=== PATIENT | female | born 1945 | race Caucasian/White ===

== ENCOUNTER 2016-09-18 16:25 | Inpatient (IN) | payer MEDICARE, BC ==
[~2016-09-18 16:25] MED LIST: ADULT ASPIRIN81 MG; ALBUTEROL SULF8.5 G1 IH; ALBUTEROL17 GM; ALBUTEROL17 GM INH; ALBUTEROL2.5 MG/3 M AERO NEB; ALLEGRA-D 24 H1 EACH PO; ALLEGRA-D1 TAB PO; ALLEGRA-D1 TAB.SR; ALOE VERA; ALOE VERA JUICE PO; ALTACE PO; ALTACE2.5 MG; ALTACE5 M4 PO; AMOXICILLIN500 M PO; ASPIRIN EC325 M1 PO; ASPIRIN81 MG PO; ASTELIN137 MCG; ASTELIN137 MCG NS; ATIVAN0.5 MG; ATIVAN1 MG; ATIVAN1 MG PO; ATIVAN2 M1 PO; ATIVAN2 MG PO; AZELASTINE137 MCG/0. NS; AZELASTINE137 MCG/01; BACTRIM DS TAB1 EAC2 PO; BACTRIM DS TABL1 TAB PO; CALCIUM + D 6001 TAB; CALCIUM + D T1 UDTAB PO; CALCIUM 600 +1 EA17 PO; CALCIUM 600 MG1 EACH PO; CALCIUM 600 W/V1 TAB; CATAPRES0.1 M1 PO; CIPRO500 M1 PO; CIPRO500 M2 PO; CLINDAMYCIN PO; COCONUT OIL1000 M1 PO; COENZYME Q-1050 MG; COMPAZINE10 MG PO; COMPAZINE5 MG PO; COREG6.25 M1 PO; CRANBERRY CONC300 MG; CRANBERRY CONC300 MG PO; CRANBERRY TABL1 EAC1 PO; CRANBERRY200 MG PO; CULTURELLE1 CA1 PO; CYTOMEL50 MCG; DELTASONE10 MG PO; DOLACET 5/500 C1 CAP; DUONEB 2.5-0.5MG3 M1 AERO NEB; ECHINACEA500 MG; EFFEXOR XR150 M1 PO; EFFEXOR XR150 MG; EFFEXOR XR150 MG PO; ENABLEX7.5 MG; FIORINAL W/CODE1 CAP; FIORINAL/CODEIN1 CAP; FISH OIL 1,0001 CAP; FISH OIL 1,0001 CAP PO; FISH OIL 1,2001 CAP PO; FISH OIL 1,2001 EAC5 PO; FISH OIL 300 MG; FISH OIL SOFTGE1 CAP; FLAXSEED PO; FLEXERIL10 MG PO; FLOVENT; FLOVENT DISKU100 MC1 IH; FLOVENT HFA12 G; FLOVENT HFA12 G IH; FLOVENT HFA12 GM; FLOVENT HFA12 GM IH; FLOVENT13; GARLIC; GARLIC OIL1000 M1 PO; GARLIC PO; GARLIC1 CAP PO; GINSENG; GINSENG520 MG; GINSENG520 MG PO; GLUCOPHAGE XR500 MG; GLUCOPHAGE500 M3 PO; GLUCOPHAGE500 MG PO; GLUCOSAMINE; GLUCOSAMINE &1 EAC1 PO; GLUCOSAMINE-CH1 EA13 PO; GLUCOSAMINE-CHO1 CA1; GLUCOSAMINE500 MG PO; GREEN TEA250 MG; IMODIUM2 MG PO; IPRAT-ALBUT 0.5-3 ML INH; KLONOPIN2 M1 PO; KLONOPIN2 MG; LEVAQUIN250 MG PO; LEVAQUIN750 M1 PO; LEVOFLOXACIN750 MG PO; LIPITOR20 MG; LIPITOR20 MG PO; LIPITOR40 M1 PO; LIPITOR40 MG; LORAZEPAM1 MG; MACROBID 100 M100 M1 PO; MACRODANTIN100 MG; MACRODANTIN50 MG; MORPHINE SULFAT15 MG PO; MORPHINE SULFAT3 PO; MORPHINE SULFAT30 M2 PO; MS CONTIN15 MG PO; MUCINEX600 M1 PO; MULTIVITAMIN1 TAB; MULTIVITAMIN1 TAB PO; MULTIVITAMINS1 EAC7 PO; MYRBETRIQ50 M1 PO; NASACORT10 GM; NASALCROM40 MG/ML; NASONEX17 GM; NEXIUM40 MG; NEXIUM40 MG PO; NORCO 10/325 TA1 TAB PO; NORCO 5/325 TAB1 TAB PO; OIL OF OREGANO; PASSION FLOWER; PAU D ARCO; PEPCID40 MG; PEPCID40 MG PO; PEPTO-BISM262 MG/11 PO; PERCOCET 5/3251 TAB PO; PHENERGAN25 M1 PO; PHENERGAN25 MG; PREDNISONE10 M1 PO; PREDNISONE10 MG PO; PROAIR HFA8.5 GM IH; PROAIR HFA8.5 GM INH; PROBIOTIC1 EA10 PO; PROMETHAZINE HC25 M3 PO; PROTONIX20 M1 PO; PROVENTIL HFA6.7 G1 INH; PYCNOGENOL; PYRIDIUM200 MG PO; RELAFEN500 MG; REQUIP1 MG; RISPERDAL1 M2 PO; RISPERDAL1 MG; RISPERDAL1 MG PO; SALMON OIL 1,01 EACH PO; SALMON OIL-1,001 CAP; SINGULAIR; SINGULAIR10 M1 PO; SINGULAIR10 MG; SINGULAIR10 MG PO; SINGULAIR4 MG; STOOL SOFTENER1 EAC4 PO; SYMBICORT 160-1 PUFF INH; SYNTHROID; SYNTHROID0.2 MG/TAB PO; SYNTHROID125 MCG; SYNTHROID150 MCG PO; SYNTHROID200 MCG PO; SYNTHROID50 MCG; TALADINE150 MG PO; TART CHERRY CA1 EACH PO; TRAZODONE HCL100 M1 PO; TRAZODONE HCL300 MG; TRAZODONE100 MG; TRAZODONE100 MG PO; TRILEPTAL300 MG; TRILEPTAL600 M2 PO; TRILEPTAL600 MG; TRILEPTAL600 MG PO; TURMERIC500 MG PO; TYLENOL325 MG PO; VALERIAN400 MG; VENTOLIN HFA18 GM INH; VICODIN 5/500 T1 TAB PO; VITAMIN A10000 UNIT; VITAMIN B121000 MCG PO; VITAMIN B1250 MCG; VITAMIN C; VITAMIN C PO; VITAMIN C500 M3 PO; VITAMIN D 22000 UNIT; VITAMIN D1000 UNIT PO; VITAMIN D31000 UNI3 PO; VITAMIN E400 UNI1; VITAMIN E400 UNI1 PO; VITAMIN E400 UNI6 PO; VYTORIN 10/20 T1 TAB; ZANTAC150 M1 PO; ZANTAC150 MG PO; ZETA; ZETIA10 M1 PO; ZETIA10 MG; ZETIA10 MG PO; ZINC30 MG; ZOCOR40 MG; ZOFRAN ODT4 MG/UDTAB PO; [UNRECOGNIZED DRUG - OTHER]; [UNRECOGNIZED DRUG - OTHER]; [UNRECOGNIZED DRUG - OTHER]; [UNRECOGNIZED DRUG - OTHER]; [UNRECOGNIZED DRUG - OTHER]; [UNRECOGNIZED DRUG - OTHER]; [UNRECOGNIZED DRUG - OTHER]; [UNRECOGNIZED DRUG - OTHER]; [UNRECOGNIZED DRUG - OTHER]; [UNRECOGNIZED DRUG - OTHER]; [UNRECOGNIZED DRUG - OTHER]; [UNRECOGNIZED DRUG - OTHER] PO; [UNRECOGNIZED DRUG - OTHER] PO; [UNRECOGNIZED DRUG - OTHER] PO; [UNRECOGNIZED DRUG - OTHER] PO
[2016-09-18 17:33] LABS: BASO % 1.8 % (0-2); BASO ABSOLUTE COUNT 0.1 tho/cmm (0.0-0.2); EOS % 9.5 % (0-7); EOSINOPHIL ABSOLUTE COUNT 0.7 tho/cmm (0.0-0.7); HCT-HEMATOCRIT 44.7 % (34.0-49.0); HGB-HEMOGLOBIN 15.3 gm/dl (12.0-15.5); IMMATURE GRANULOCYTES ABSOLUTE 0.01 tho/cmm (0-0.03); IMMATURE GRANULOCYTES PERCENT 0.1 % (0-0.3); LYMPH % 20.9 % (20-45); LYMPH ABSOLUTE COUNT 1.5 tho/cmm (0.8-4.5); MCH (MEAN CORPUSCULAR HGB) 31.2 pg (28.0-32.0); MCHC MEAN CORPUSCULAR HGB CONC 34.2 % (32.0-36.0); MEAN PLATELET VOLUME 9.9 cmc (9.4-12.4); MONOCYTE ABSOLUTE COUNT 0.6 tho/cmm (0.0-1.2); NEUTROPHIL ABSOLUTE COUNT 4.2 tho/cmm (1.6-8.0); NEUTROPHIL-AUTOMATED 4.2 tho/cmm (1.6-8.0); NEUTROPHILS % 58.7 % (40-80); PLATELET COUNT 184 tho/cmm (150-450); RED BLOOD COUNT 4.91 mil/cmm (4.00-5.20); RED CELL DISTRIBUTION WIDTH 13.8 % (12.4-16.4); WHITE BLOOD COUNT 7.1 tho/cmm (4.0-10.0)
[2016-09-18 17:38] LABS: INR 0.9 INR (0.9-1.1); PROTHROMBIN TIME 10.9 SECONDS (9.0-13.6)
[2016-09-18 18:07] LABS: PROCALCITONIN <0.05 ng/ml (0.05-0.09)
[2016-09-18 18:09] LABS: ANION GAP 14 mmol/L (0-20); BLOOD UREA NITROGEN 7 mg/dl (6-24); CALCIUM 8.7 mg/dl (8.5-10.5); CARBON DIOXIDE-VENOUS 30 mmol/L (22-32); CHLORIDE 99 mmol/l (96-110); GLUCOSE 131 mg/dL (70-110); POTASSIUM 3.9 mmol/L (3.7-5.1); SODIUM 139 mmol/L (135-145); eGFR VALUE FOR BLACK >90 mL/Min
[2016-09-19 04:39] LABS: BASO % 1.4 % (0-2); BASO ABSOLUTE COUNT 0.1 tho/cmm (0.0-0.2); EOS % 2.1 % (0-7); EOSINOPHIL ABSOLUTE COUNT 0.1 tho/cmm (0.0-0.7); HCT-HEMATOCRIT 46.3 % (34.0-49.0); HGB-HEMOGLOBIN 15.6 gm/dl (12.0-15.5); IMMATURE GRANULOCYTES ABSOLUTE 0.01 tho/cmm (0-0.03); IMMATURE GRANULOCYTES PERCENT 0.2 % (0-0.3); LYMPH ABSOLUTE COUNT 0.8 tho/cmm (0.8-4.5); MCH (MEAN CORPUSCULAR HGB) 30.9 pg (28.0-32.0); MCHC MEAN CORPUSCULAR HGB CONC 33.7 % (32.0-36.0); MCV (MEAN CELL VOLUME) 91.7 fl (82.0-96.0); MEAN PLATELET VOLUME 9.6 cmc (9.4-12.4); MONO % 2.1 % (0-12); MONOCYTE ABSOLUTE COUNT 0.1 tho/cmm (0.0-1.2); NEUTROPHILS % 78.2 % (40-80); PLATELET COUNT 175 tho/cmm (150-450); RED BLOOD COUNT 5.05 mil/cmm (4.00-5.20); RED CELL DISTRIBUTION WIDTH 13.7 % (12.4-16.4); WHITE BLOOD COUNT 5.1 tho/cmm (4.0-10.0)
[2016-09-19 05:46] LABS: ANION GAP 13 mmol/L (0-20); BLOOD UREA NITROGEN 5 mg/dl (6-24); CALCIUM 8.7 mg/dl (8.5-10.5); CARBON DIOXIDE-VENOUS 31 mmol/L (22-32); CHLORIDE 100 mmol/l (96-110); CREATININE 0.59 mg/dl (0.50-1.10); GLUCOSE 154 mg/dL (70-110); SODIUM 140 mmol/L (135-145); eGFR VALUE FOR BLACK >90 mL/Min
[2016-09-19 07:05] LABS: URINE APPEARANCE CLEAR; URINE BILIRUBIN NEGATIVE (NEG); URINE BLOOD NEGATIVE (NEG); URINE COLOR YELLOW; URINE GLUCOSE (UA) NEGATIVE (NEG); URINE KETONE MODERATE (NEG); URINE LEUKOCYTE ESTERASE NEGATIVE (NEG); URINE NITRITE NEGATIVE (NEG); URINE PROTEIN MODERATE (NEG)
[2016-09-19 07:16] LABS: URINE EPITHELIAL CELLS 0-3 /[HPF] (0-10); URINE WBC RARE /[HPF] (0-5)
[2016-09-19 09:30] LABS: URINE RBC O /[HPF] (0-5)
[2016-09-19 11:08] LABS: ABG CO2 ARTERIAL 30 mmol/L (21-27); ARTERIAL BLD GAS O2 SATURATION 97 % (95-98); ARTERIAL BLOOD GAS PCO2 45 mmHg (32-45); ARTERIAL PO2 88 mmHg (70-100); BICARBONATE 29 mmol/L (21-28); BLOOD GAS BASE EXCESS 4 mM/L (-/+3); PH 7.42 Units (7.35-7.45)
[2016-09-20 04:16] LABS: ABG CO2 ARTERIAL 32 mmol/L (21-27); ARTERIAL BLD GAS O2 SATURATION 95 % (95-98); ARTERIAL BLOOD GAS PCO2 48 mmHg (32-45); BICARBONATE 31 mmol/L (21-28); BLOOD GAS BASE EXCESS 5 mM/L (-/+3); PH 7.42 Units (7.35-7.45)
[2016-09-20 04:18] LABS: ARTERIAL PO2 74 mmHg (70-100)
[2016-09-20 04:45] LABS: BASO % 0.1 % (0-2); EOS % 0.1 % (0-7); HCT-HEMATOCRIT 46.3 % (34.0-49.0); HGB-HEMOGLOBIN 15.7 gm/dl (12.0-15.5); IMMATURE GRANULOCYTES ABSOLUTE 0.01 tho/cmm (0-0.03); IMMATURE GRANULOCYTES PERCENT 0.1 % (0-0.3); LYMPH % 19.1 % (20-45); LYMPH ABSOLUTE COUNT 1.3 tho/cmm (0.8-4.5); MCH (MEAN CORPUSCULAR HGB) 31.2 pg (28.0-32.0); MCHC MEAN CORPUSCULAR HGB CONC 33.9 % (32.0-36.0); MCV (MEAN CELL VOLUME) 91.9 fl (82.0-96.0); MEAN PLATELET VOLUME 9.5 cmc (9.4-12.4); MONO % 4.9 % (0-12); MONOCYTE ABSOLUTE COUNT 0.3 tho/cmm (0.0-1.2); NEUTROPHIL ABSOLUTE COUNT 5.3 tho/cmm (1.6-8.0); NEUTROPHIL-AUTOMATED 5.3 tho/cmm (1.6-8.0); NEUTROPHILS % 75.7 % (40-80); PLATELET COUNT 230 tho/cmm (150-450); RED BLOOD COUNT 5.04 mil/cmm (4.00-5.20); RED CELL DISTRIBUTION WIDTH 13.6 % (12.4-16.4)
[2016-09-20 05:09] LABS: ANION GAP 11 mmol/L (0-20); BLOOD UREA NITROGEN 10 mg/dl (6-24); CALCIUM 8.9 mg/dl (8.5-10.5); CARBON DIOXIDE-VENOUS 34 mmol/L (22-32); CHLORIDE 98 mmol/l (96-110); CREATININE 0.67 mg/dl (0.50-1.10); GLUCOSE 193 mg/dL (70-110); SODIUM 139 mmol/L (135-145); eGFR VALUE FOR BLACK >90 mL/Min
[2016-09-21 06:13] LABS: HGB-HEMOGLOBIN 14.3 gm/dl (12.0-15.5); PLATELET COUNT 200 tho/cmm (150-450)
[2016-09-23 07:00] LABS: PROCALCITONIN <0.05 ng/ml (0.05-0.09)
[2016-09-23 07:15] LABS: HGB-HEMOGLOBIN 15.3 gm/dl (12.0-15.5); PLATELET COUNT 232 tho/cmm (150-450)
[2016-09-24 05:23] LABS: BASO % 0.1 % (0-2); EOS % 0.8 % (0-7); EOSINOPHIL ABSOLUTE COUNT 0.1 tho/cmm (0.0-0.7); HCT-HEMATOCRIT 47.4 % (34.0-49.0); HGB-HEMOGLOBIN 16.2 gm/dl (12.0-15.5); IMMATURE GRANULOCYTES ABSOLUTE 0.03 tho/cmm (0-0.03); IMMATURE GRANULOCYTES PERCENT 0.3 % (0-0.3); LYMPH % 24.5 % (20-45); LYMPH ABSOLUTE COUNT 2.1 tho/cmm (0.8-4.5); MCH (MEAN CORPUSCULAR HGB) 31.2 pg (28.0-32.0); MCHC MEAN CORPUSCULAR HGB CONC 34.2 % (32.0-36.0); MCV (MEAN CELL VOLUME) 91.3 fl (82.0-96.0); MEAN PLATELET VOLUME 10.2 cmc (9.4-12.4); MONO % 10.2 % (0-12); MONOCYTE ABSOLUTE COUNT 0.9 tho/cmm (0.0-1.2); NEUTROPHIL ABSOLUTE COUNT 5.6 tho/cmm (1.6-8.0); NEUTROPHIL-AUTOMATED 5.6 tho/cmm (1.6-8.0); NEUTROPHILS % 64.1 % (40-80); PLATELET COUNT 232 tho/cmm (150-450); RED BLOOD COUNT 5.19 mil/cmm (4.00-5.20); RED CELL DISTRIBUTION WIDTH 13.4 % (12.4-16.4); WHITE BLOOD COUNT 8.7 tho/cmm (4.0-10.0)
[2016-09-25 04:22] LABS: PLATELET COUNT 246 tho/cmm (150-450)
[2016-09-27 05:59] LABS: HCT-HEMATOCRIT 41.9 % (34.0-49.0); HGB-HEMOGLOBIN 14.4 gm/dl (12.0-15.5); IMMATURE GRANULOCYTES ABSOLUTE 0.03 tho/cmm (0-0.03); IMMATURE GRANULOCYTES PERCENT 0.4 % (0-0.3); LYMPH % 15.7 % (20-45); LYMPH ABSOLUTE COUNT 1.1 tho/cmm (0.8-4.5); MCH (MEAN CORPUSCULAR HGB) 31.1 pg (28.0-32.0); MCHC MEAN CORPUSCULAR HGB CONC 34.4 % (32.0-36.0); MCV (MEAN CELL VOLUME) 90.5 fl (82.0-96.0); MONO % 6.5 % (0-12); MONOCYTE ABSOLUTE COUNT 0.5 tho/cmm (0.0-1.2); NEUTROPHIL ABSOLUTE COUNT 5.6 tho/cmm (1.6-8.0); NEUTROPHIL-AUTOMATED 5.6 tho/cmm (1.6-8.0); NEUTROPHILS % 77.4 % (40-80); PLATELET COUNT 182 tho/cmm (150-450); RED BLOOD COUNT 4.63 mil/cmm (4.00-5.20); RED CELL DISTRIBUTION WIDTH 13.4 % (12.4-16.4); WHITE BLOOD COUNT 7.3 tho/cmm (4.0-10.0)
[2016-09-27 06:17] LABS: ANION GAP 10 mmol/L (0-20); BLOOD UREA NITROGEN 23 mg/dl (6-24); CALCIUM 8.5 mg/dl (8.5-10.5); CARBON DIOXIDE-VENOUS 31 mmol/L (22-32); CHLORIDE 96 mmol/l (96-110); CREATININE 0.84 mg/dl (0.50-1.10); GLUCOSE 250 mg/dL (70-110); POTASSIUM 4.3 mmol/L (3.7-5.1); SODIUM 133 mmol/L (135-145); eGFR VALUE FOR BLACK 82 mL/Min
[2016-09-28 06:55] LABS: BLOOD UREA NITROGEN 22 mg/dl (6-24); CALCIUM 8.3 mg/dl (8.5-10.5); CARBON DIOXIDE-VENOUS 33 mmol/L (22-32); CREATININE 0.74 mg/dl (0.50-1.10); GLUCOSE 242 mg/dL (70-110); eGFR VALUE FOR BLACK >90 mL/Min
[2016-09-28 07:10] LABS: ANION GAP 11 mmol/L (0-20); CHLORIDE 95 mmol/l (96-110); POTASSIUM 4.9 mmol/L (3.7-5.1); SODIUM 134 mmol/L (135-145)
[2016-09-29] MEDS ORDERED: FLONASE ALLERG9.9 ML (13:11)
[2016-09-29] MEDS ORDERED: CATAPRES0.2 M1 PO (13:12)
[2016-09-29] MEDS ORDERED: ALTACE5 M4 PO (13:12)
[2016-09-29] MEDS ORDERED: CARDIZEM CD120 M1 PO (13:14)
[2016-09-29] MEDS ORDERED: MORPHINE SU15 MG/TAB PO (13:15)
[2016-09-29] MEDS ORDERED: TYLENOL325 M2 PO (13:16)
[2016-09-29] MEDS ORDERED: ATIVAN2 M1 PO (13:18)
[2016-09-29] MEDS ORDERED: GUAIFENESIN ER600 MG PO (13:20)
[2016-09-29] MEDS ORDERED: SENOKOT-S TABL1 EACH PO (13:21)
[2016-09-29] MEDS ORDERED: PREDNISONE10 M1 PO (13:25)
[2016-09-29] MEDS ORDERED: ZYRTEC10 M7 PO (13:26)
[2016-09-29] MEDS ORDERED: ALBUTEROL2.5 MG/3 M INH (13:30)
[2017-01-27] MEDS ORDERED: RISPERDAL1 M2 PO (03:05)
[2017-01-27] MEDS ORDERED: SYNTHROID50 MC1 PO (03:05)
[2017-01-27] MEDS ORDERED: ATIVAN1 M2 PO (03:05)
[2017-01-27] MEDS ORDERED: ZETIA10 M1 PO (03:06)
[2017-01-27] MEDS ORDERED: KLONOPIN1 M1 PO (03:06)
[2017-01-27] MEDS ORDERED: ALTACE5 M4 PO (03:06)
[2017-01-27] MEDS ORDERED: TRILEPTAL600 M2 PO (03:07)
[2017-01-27] MEDS ORDERED: CLONIDINE HCL0.1 M2 PO (03:07)
[2017-01-27] MEDS ORDERED: LIPITOR20 M1 PO (03:07)
[2017-01-27] MEDS ORDERED: SINGULAIR10 M1 PO (03:08)
[2017-01-27] MEDS ORDERED: GLUCOPHAGE XR500 M1 PO (03:08)
[2017-01-27] MEDS ORDERED: TRAZODONE HCL100 M1 PO (03:08)
[2017-01-27] MEDS ORDERED: EFFEXOR XR150 M1 PO (03:08)
[2017-01-27] MEDS ORDERED: ARYMO ER30 MG PO (03:09)
[2017-01-27] MEDS ORDERED: GLUCOPHAGE500 M3 PO (03:09)
[2017-01-27] MEDS ORDERED: MORPHINE SULFAT15 MG PO (03:11)
[2017-01-27] MEDS ORDERED: PROMETHAZINE HC25 M3 PO (03:12)
[2017-01-27] MEDS ORDERED: ZANTAC150 M1 PO (03:12)
[2017-01-27] MEDS ORDERED: ASPIRIN325 M3 PO (03:12)
[2017-01-27] MEDS ORDERED: PROBIOTIC1 EA10 PO (03:13)
[2017-01-27] MEDS ORDERED: TUMERIC (03:13)
[2017-01-27] MEDS ORDERED: VITAMIN D31000 UNI3 PO (03:13)
[2017-01-27] MEDS ORDERED: CRANBERRY TABL1 EAC1 PO (03:14)
[2017-01-27] MEDS ORDERED: FLAXSEED OIL1000 M3 PO (03:14)
[2017-01-27] MEDS ORDERED: VITAMIN C WITH500 M2 PO (03:15)
[2017-01-27] MEDS ORDERED: CALCIUM CARBON600 M2 PO (03:15)
[2017-01-27] MEDS ORDERED: FISH OIL 1,2001 EAC8 PO (03:15)
[2017-01-27] MEDS ORDERED: GARLIC1 EAC1 PO (03:15)
[2017-01-27] MEDS ORDERED: GLUCOSAMINE HC500 M1 PO (03:15)
[2017-01-27] MEDS ORDERED: OPTIFLEX C PO (03:16)
[2017-01-27] MEDS ORDERED: VITAMIN E400 UNI4 PO (03:16)
[2017-01-27] MEDS ORDERED: MYRBETRIQ50 M1 PO (03:16)
[2017-01-27] MEDS ORDERED: IPRAT-ALBUT 0.5-3 ML INH (03:21)
[2017-01-27] MEDS ORDERED: MORPHINE SULFAT30 M7 PO (03:24)
[2017-02-06] MEDS ORDERED: PREDNISONE10 M1 (10:28)
[2017-02-06] MEDS ORDERED: CEFDINIR300 M1 PO (10:34)
[2017-02-06] MEDS ORDERED: XARELTO15 M1 PO (10:35)
[2017-02-06] MEDS ORDERED: XARELTO20 M1 PO (10:36)
== END 2016-09-29 16:50 | DRG 189 ==
LOC: EDMED 16:25 → EMR2 21:33 → 5WE 21:40 → PCUB 09-24 11:33
PROVIDERS: Emergency Medicine; Family Medicine; Internal Medicine; Internal Medicine Critical Care Medicine; Internal Medicine Pulmonary Disease; ADMIT Hospitalist
PROC: 05H633Z Insertion of Infusion Device into Left Subclavian Vein, Percutaneous Approach (ICD-10-PCS; principal; 2016-09-22)
DX: J96.01 Acute respiratory failure with hypoxia (principal); J18.9 Pneumonia, unspecified organism; I48.0 Paroxysmal atrial fibrillation; J45.31 Mild persistent asthma with (acute) exacerbation; F11.20 Opioid dependence, uncomplicated; K21.9 Gastro-esophageal reflux disease without esophagitis; E11.9 Type 2 diabetes mellitus without complications; J32.9 Chronic sinusitis, unspecified; I10 Essential (primary) hypertension; G89.4 Chronic pain syndrome; F41.9 Anxiety disorder, unspecified; R91.8 Other nonspecific abnormal finding of lung field; M79.7 Fibromyalgia; Z79.84 Long term (current) use of oral hypoglycemic drugs; M17.0 Bilateral primary osteoarthritis of knee; R00.0 Tachycardia, unspecified; R19.7 Diarrhea, unspecified; R41.82 Altered mental status, unspecified; T50.905A Adverse effect of unspecified drugs, medicaments and biological substances, initial encounter; E66.9 Obesity, unspecified; E78.5 Hyperlipidemia, unspecified; E03.9 Hypothyroidism, unspecified; F32.9 Major depressive disorder, single episode, unspecified; I25.10 Atherosclerotic heart disease of native coronary artery without angina pectoris; Z79.82 Long term (current) use of aspirin; R63.4 Abnormal weight loss; I25.2 Old myocardial infarction; Z86.73 Personal history of transient ischemic attack (TIA), and cerebral infarction without residual deficits
CPT/HCPCS: C1751; J0456; J0696; J1650; J1815; J1940; J2270; J2310; J2405; J2920; J2930; J7050; J7512; Q9967

== ENCOUNTER 2016-10-27 10:22 | Inpatient (IN) | payer MEDICARE, BC ==
[~2016-10-27 10:22] MED LIST changes: +ALBUTEROL2.5 MG/3 M INH; +CARDIZEM CD120 M1 PO; +CATAPRES0.2 M1 PO; +FLONASE ALLERG9.9 ML; +GUAIFENESIN ER600 MG PO; +MORPHINE SU15 MG/TAB PO; +SENOKOT-S TABL1 EACH PO; +TYLENOL325 M2 PO; +ZYRTEC10 M7 PO
[2016-10-27 11:02] LABS: ABG CO2 ARTERIAL 30 mmol/L (21-27); ARTERIAL BLD GAS O2 SATURATION 98 % (95-98); ARTERIAL BLOOD GAS PCO2 55 mmHg (32-45); ARTERIAL PO2 116 mmHg (70-100); BICARBONATE 28 mmol/L (21-28); BLOOD GAS BASE EXCESS 2 mM/L (-/+3); PH 7.33 Units (7.35-7.45)
[2016-10-27 11:07] LABS: BASO % 0.2 % (0-2); EOS % 2.4 % (0-7); EOSINOPHIL ABSOLUTE COUNT 0.2 tho/cmm (0.0-0.7); HCT-HEMATOCRIT 42.2 % (34.0-49.0); HGB-HEMOGLOBIN 14.5 gm/dl (12.0-15.5); IMMATURE GRANULOCYTES ABSOLUTE 0.02 tho/cmm (0-0.03); IMMATURE GRANULOCYTES PERCENT 0.2 % (0-0.3); LYMPH % 8.5 % (20-45); LYMPH ABSOLUTE COUNT 0.8 tho/cmm (0.8-4.5); MCH (MEAN CORPUSCULAR HGB) 31.7 pg (28.0-32.0); MCHC MEAN CORPUSCULAR HGB CONC 34.4 % (32.0-36.0); MCV (MEAN CELL VOLUME) 92.1 fl (82.0-96.0); MEAN PLATELET VOLUME 9.4 cmc (9.4-12.4); MONOCYTE ABSOLUTE COUNT 0.7 tho/cmm (0.0-1.2); NEUTROPHIL ABSOLUTE COUNT 7.5 tho/cmm (1.6-8.0); NEUTROPHIL-AUTOMATED 7.5 tho/cmm (1.6-8.0); NEUTROPHILS % 80.7 % (40-80); PLATELET COUNT 165 tho/cmm (150-450); RED BLOOD COUNT 4.58 mil/cmm (4.00-5.20); RED CELL DISTRIBUTION WIDTH 13.5 % (12.4-16.4); WHITE BLOOD COUNT 9.3 tho/cmm (4.0-10.0)
[2016-10-27 11:09] LABS: PROTHROMBIN TIME 11.6 SECONDS (9.0-13.6)
[2016-10-27 11:32] LABS: PROCALCITONIN <0.05 ng/ml (0.05-0.09)
[2016-10-27] MEDS ORDERED: MS CONTIN15 M1 PO (11:43)
[2016-10-27] MEDS ORDERED: TRAZODONE HCL100 M1 PO (11:43)
[2016-10-27] MEDS ORDERED: NEXIUM40 M1 PO (11:43)
[2016-10-27] MEDS ORDERED: KLONOPIN0.5 M1 PO (11:43)
[2016-10-27 12:06] LABS: ALB/GLOB RATIO 0.9 (0.8-2.0); ALBUMIN 3.2 g/dl (3.5-5.0); ALKALINE PHOSPHATASE 91 U/L (33-138); ALT/SGPT 28 U/L (12-78); ANION GAP 15 mmol/L (0-20); AST/SGOT 24 U/L (10-40); BILIRUBIN,TOTAL 0.4 mg/dl (0-1.5); BLOOD UREA NITROGEN 8 mg/dl (6-24); CALCIUM 8.6 mg/dl (8.5-10.5); CARBON DIOXIDE-VENOUS 26 mmol/L (22-32); CHLORIDE 103 mmol/l (96-110); CREATININE 0.62 mg/dl (0.50-1.10); GLUCOSE 128 mg/dL (70-110); POTASSIUM 4.1 mmol/L (3.7-5.1); SODIUM 140 mmol/L (135-145); eGFR VALUE FOR BLACK >90 mL/Min
--- NOTE | 2016-10-27 16:26 | NUR ---
VIRTUAL CARE NOTE: ATTEMPTED TO CALL INTO ROOM TO GO OVER ADMISSION DATABASE & HEALTH HISTORY WITH PT. SHE REFUSES VIRTUAL NURSE SERVICES. WILL CONTINUE TO MONITOR NEEDED. SPOKE W/ PT'S BEDSIDE NURSE TO UPDATE HER OF THIS REQUEST.
[2016-10-28 05:53] LABS: BASO % 0.5 % (0-2); EOS % 0.5 % (0-7); HCT-HEMATOCRIT 39.5 % (34.0-49.0); HGB-HEMOGLOBIN 13.4 gm/dl (12.0-15.5); IMMATURE GRANULOCYTES ABSOLUTE 0.03 tho/cmm (0-0.03); IMMATURE GRANULOCYTES PERCENT 0.5 % (0-0.3); LYMPH % 16.7 % (20-45); MCH (MEAN CORPUSCULAR HGB) 30.9 pg (28.0-32.0); MCHC MEAN CORPUSCULAR HGB CONC 33.9 % (32.0-36.0); MCV (MEAN CELL VOLUME) 91.2 fl (82.0-96.0); MEAN PLATELET VOLUME 9.3 cmc (9.4-12.4); MONO % 8.1 % (0-12); MONOCYTE ABSOLUTE COUNT 0.5 tho/cmm (0.0-1.2); NEUTROPHIL ABSOLUTE COUNT 4.5 tho/cmm (1.6-8.0); NEUTROPHIL-AUTOMATED 4.5 tho/cmm (1.6-8.0); NEUTROPHILS % 73.7 % (40-80); PLATELET COUNT 209 tho/cmm (150-450); RED BLOOD COUNT 4.33 mil/cmm (4.00-5.20); RED CELL DISTRIBUTION WIDTH 13.4 % (12.4-16.4)
[2016-10-30 05:27] LABS: HGB-HEMOGLOBIN 12.8 gm/dl (12.0-15.5); PLATELET COUNT 223 tho/cmm (150-450)
--- NOTE | 2016-10-30 18:53 | NUR ---
VIRTUAL CARE NOTE: ASSESSMENT DEFERRED. PT. SLEEPING.
[2016-11-01 05:26] LABS: HGB-HEMOGLOBIN 14.8 gm/dl (12.0-15.5); PLATELET COUNT 237 tho/cmm (150-450)
[2016-11-03 04:44] LABS: HGB-HEMOGLOBIN 14.7 gm/dl (12.0-15.5); PLATELET COUNT 208 tho/cmm (150-450)
[2016-11-03] MEDS ORDERED: PREDNISONE10 M1 PO (07:29)
[2016-11-03] MEDS ORDERED: MUCINEX600 M1 PO (14:06)
[2016-11-03] MEDS ORDERED: STOP THE FOLLOWING (14:09)
[2017-01-27] MEDS ORDERED: ATIVAN1 M2 PO (03:05)
[2017-01-27] MEDS ORDERED: RISPERDAL1 M2 PO (03:05)
[2017-01-27] MEDS ORDERED: SYNTHROID50 MC1 PO (03:05)
[2017-01-27] MEDS ORDERED: KLONOPIN1 M1 PO (03:06)
[2017-01-27] MEDS ORDERED: ALTACE5 M4 PO (03:06)
[2017-01-27] MEDS ORDERED: ZETIA10 M1 PO (03:06)
[2017-01-27] MEDS ORDERED: CLONIDINE HCL0.1 M2 PO (03:07)
[2017-01-27] MEDS ORDERED: LIPITOR20 M1 PO (03:07)
[2017-01-27] MEDS ORDERED: TRILEPTAL600 M2 PO (03:07)
[2017-01-27] MEDS ORDERED: GLUCOPHAGE XR500 M1 PO (03:08)
[2017-01-27] MEDS ORDERED: EFFEXOR XR150 M1 PO (03:08)
[2017-01-27] MEDS ORDERED: SINGULAIR10 M1 PO (03:08)
[2017-01-27] MEDS ORDERED: TRAZODONE HCL100 M1 PO (03:08)
[2017-01-27] MEDS ORDERED: ARYMO ER30 MG PO (03:09)
[2017-01-27] MEDS ORDERED: GLUCOPHAGE500 M3 PO (03:09)
[2017-01-27] MEDS ORDERED: MORPHINE SULFAT15 MG PO (03:11)
[2017-01-27] MEDS ORDERED: PROMETHAZINE HC25 M3 PO (03:12)
[2017-01-27] MEDS ORDERED: ASPIRIN325 M3 PO (03:12)
[2017-01-27] MEDS ORDERED: ZANTAC150 M1 PO (03:12)
[2017-01-27] MEDS ORDERED: TUMERIC (03:13)
[2017-01-27] MEDS ORDERED: VITAMIN D31000 UNI3 PO (03:13)
[2017-01-27] MEDS ORDERED: PROBIOTIC1 EA10 PO (03:13)
[2017-01-27] MEDS ORDERED: FLAXSEED OIL1000 M3 PO (03:14)
[2017-01-27] MEDS ORDERED: CRANBERRY TABL1 EAC1 PO (03:14)
[2017-01-27] MEDS ORDERED: VITAMIN C WITH500 M2 PO (03:15)
[2017-01-27] MEDS ORDERED: CALCIUM CARBON600 M2 PO (03:15)
[2017-01-27] MEDS ORDERED: GARLIC1 EAC1 PO (03:15)
[2017-01-27] MEDS ORDERED: GLUCOSAMINE HC500 M1 PO (03:15)
[2017-01-27] MEDS ORDERED: FISH OIL 1,2001 EAC8 PO (03:15)
[2017-01-27] MEDS ORDERED: VITAMIN E400 UNI4 PO (03:16)
[2017-01-27] MEDS ORDERED: OPTIFLEX C PO (03:16)
[2017-01-27] MEDS ORDERED: MYRBETRIQ50 M1 PO (03:16)
[2017-01-27] MEDS ORDERED: IPRAT-ALBUT 0.5-3 ML INH (03:21)
[2017-01-27] MEDS ORDERED: MORPHINE SULFAT30 M7 PO (03:24)
[2017-02-06] MEDS ORDERED: PREDNISONE10 M1 (10:28)
[2017-02-06] MEDS ORDERED: CEFDINIR300 M1 PO (10:34)
[2017-02-06] MEDS ORDERED: XARELTO15 M1 PO (10:35)
[2017-02-06] MEDS ORDERED: XARELTO20 M1 PO (10:36)
== END 2016-11-03 19:13 | DRG 202 ==
LOC: EDMED 10:22 → EMR2 13:20 → 5WD 16:01
PROVIDERS: Emergency Medicine; Internal Medicine; Nurse Practitioner Acute Care; ADMIT Hospitalist
DX: J45.901 Unspecified asthma with (acute) exacerbation (principal); J96.02 Acute respiratory failure with hypercapnia; I27.2 Other secondary pulmonary hypertension; E11.9 Type 2 diabetes mellitus without complications; I10 Essential (primary) hypertension; J32.9 Chronic sinusitis, unspecified; F32.9 Major depressive disorder, single episode, unspecified; M79.7 Fibromyalgia; E78.5 Hyperlipidemia, unspecified; E03.9 Hypothyroidism, unspecified; K21.9 Gastro-esophageal reflux disease without esophagitis; K44.9 Diaphragmatic hernia without obstruction or gangrene; I25.10 Atherosclerotic heart disease of native coronary artery without angina pectoris; R91.8 Other nonspecific abnormal finding of lung field; F41.9 Anxiety disorder, unspecified; B34.9 Viral infection, unspecified; Z79.891 Long term (current) use of opiate analgesic; Z88.8 Allergy status to other drugs, medicaments and biological substances; Z79.899 Other long term (current) drug therapy
CPT/HCPCS: G8978-GP-CH; G8979-GP-CH; G8980-GP-CH; G8987-GO-CH; G8988-GO-CH; G8989-GO-CH; J1650; J1815; J2405; J2930; J7512